=== PATIENT | female | born 1980 ===

== ENCOUNTER 2017-08-24 21:56 | Emergency (ER) | payer SELFPAY ==
[2017-08-24 22:34] VITALS: TEMP 97.9
--- NOTE | 2017-08-24 23:48 | ED PDOC ---
Arrival/HPI - General Chief Complaint: Back Pain Time Seen by Provider: 08/24/17 23:31 Historian: Patient - History of Present Illness Narrative History of Present Illness (Text): 08/24/17 23:35 This 37 yo female with pmh hypothyroidism, presents to this ED c/o right lower back pain x 10 days. Patient stated pain has bee persisting. Patient denies trauma, fall, weakness, paresthesias, GI/ incontinence, saddle anesthesia, urinary retention, dizziness or abnormal gait. Time/Duration: Other (see hpi) Quality: Aching Context: Home Past Medical History - Provider Review Nursing Documentation Reviewed: Yes - Endocrine/Metabolic Hx Hypothyroidism: Yes - Psychiatric Hx Substance Use: No Family/Social History - Physician Review Nursing Documentation Reviewed: Yes Family/Social History: Other (noncontributory) Smoking Status: n Hx Alcohol Use: No Hx Substance Use: No Allergies/Home Meds Allergies/Adverse Reactions: Allergies No Known Allergies Allergy (Verified 08/24/17 22:34) Home Medications: Home Meds Medication Instructions Recorded Confirmed Levothyroxine [Synthroid] 50 mcg PO DAILY 08/24/17 08/24/17 Review of Systems - Review of Systems Constitutional: Normal. absent: Fatigue, Weight Change, Fevers Eyes: Normal. absent: Photophobia ENT: Normal Respiratory: Normal. absent: SOB, Cough Cardiovascular: Normal. absent: Chest Pain Gastrointestinal: Normal. absent: Abdominal Pain, Nausea, Vomiting Genitourinary Female: Normal. absent: Dysuria, Frequency, Hematuria, Vaginal Bleeding, Vaginal Discharge Musculoskeletal: Back Pain. absent: Arthralgias, Neck Pain, Joint Swelling Skin: Normal. absent: Rash Neurological: Normal. absent: Headache, Dizziness, Focal Weakness, Gait Changes , Speech Changes, Facial Droop, Disequilibrium Endocrine: Normal Hemo/Lymphatic: Normal Psychiatric: Normal Physical Exam Vital Signs Temp 08/24/17 22:30 97.9 F Temperature: Afebrile Blood Pressure: Normal Pulse: Regular Respiratory Rate: Normal Appearance: Positive for: Well-Appearing, Non-Toxic, Comfortable Pain Distress: None Mental Status: Positive for: Alert and Oriented X 3 - Systems Exam Head: Present: Atraumatic, Normocephalic Pupils: Present: PERRL Extroacular Muscles: Present: EOMI Conjunctiva: Present: Normal Mouth: Present: Moist Mucous Membranes Neck: Present: Normal Range of Motion Abdomen: Present: Normal Bowel Sounds. No: Tenderness, Distention, Peritoneal Signs Back: Present: Normal Inspection, Paraspinal Tenderness (Mild right paravertebral tenderness. No vertebral point tenderness. No vertebral step off ). No: CVA Tenderness, Midline Tenderness Upper Extremity: Present: Normal Inspection, Normal ROM, Neurovascularly Intact. No: Cyanosis, Edema Lower Extremity: Present: Normal Inspection, NORMAL PULSES, Normal ROM. No: Edema Neurological: Present: GCS=15, CN II-XII Intact, Speech Normal, Motor Func Grossly Intact, Normal Sensory Function, Normal Cerebellar Funct, Gait Normal, Memory Normal Skin: Present: Warm, Dry, Normal Color. No: Rashes Psychiatric: Present: Alert, Oriented x 3, Normal Insight, Normal Concentration Medical Decision Making ED Course and Treatment: 08/24/17 23:53 Re-evaluation. Patient feels better. Discussed results and plan with patient who expresses understanding. All questions answered and there is agreement with the plan to discharge home with instructions. Patient stable for discharge. Return if symptoms persist or worsen. Re-evaluation Time: 23:53 Reassessment Condition: Re-examined, Improved Disposition/Present on Arrival - Present on Arrival Any Indicators Present on Arrival: No History of DVT/PE: No History of Uncontrolled Diabetes: No Urinary Catheter: No History of Decub. Ulcer: No History Surgical Site Infection Following: None - Disposition Have Diagnosis and Disposition been Completed?: Yes Diagnosis: Lower back pain Disposition: HOME/ ROUTINE Disposition Time: 23:53 Patient Plan: Discharge Condition: GOOD Additional Instructions: Call private doctor for follow up visit in 1-2 days. Take medication as instructed with food. Return to emergency if symptoms worsen. Prescriptions: diaZEpam [Valium] 5 mg PO DAILY #6 tab Famotidine [Pepcid] 40 mg PO DAILY #10 tablet Naproxen 500 mg PO BID PRN #14 tablet PRN Reason: Pain, Severe (8-10) oxyCODONE/Acetaminophen [Percocet 5/325 mg Tab] 1 ea PO Q6H PRN #5 tab PRN Reason: Pain, Severe (8-10) Referrals: [facility] [Outside] - Follow up with primary [facility] [Outside] - Follow up with primary
[2017-08-25 00:04] VITALS: BP 146/78; PULSE 88; RESP 16; O2SAT 100
== END 2017-08-25 00:03 | disposition home or self-care (01) ==
LOC: ED 21:56 → MERGE 21:56 → ED 08-25 00:03
DX: M54.5 Low back pain (principal)
CPT/HCPCS: 81025; 96372; 99283; J1885

== ENCOUNTER 2017-11-10 19:12 | Emergency (ER) | payer SELFPAY ==
[2017-11-10 19:20] VITALS: TEMP 98.6
--- NOTE | 2017-11-10 19:43 | ED PDOC ---
Arrival/HPI - General Chief Complaint: Female Genitourinary Time Seen by Provider: 11/10/17 19:19 Historian: Patient - History of Present Illness Narrative History of Present Illness (Text): 11/10/17 19:40 A 37 year old female, who is approximately 5 weeks , presents to the emergency department complaining of urinary frequency and brining on urination since today. Patient denies any fever, chills, nausea, vomiting, abdominal pain , back pain, chest pain, shortness of breath or any other complaints. Time/Duration: Other (today) Symptom Course: Unchanged Quality: Burning Context: Home Past Medical History - Provider Review Nursing Documentation Reviewed: Yes - Cardiac Hx Cardiac Disorders: No - Pulmonary Hx Respiratory Disorders: No - Neurological Hx Neurological Disorder: No - HEENT Hx HEENT Disorder: No - Renal Hx Renal Disorder: No - Endocrine/Metabolic Hx Endocrine Disorders: Yes Hx Hypothyroidism: Yes - Hematological/Oncological Hx Blood Disorders: No - Integumentary Hx Dermatological Disorder: No - Musculoskeletal/Rheumatological Hx Musculoskeletal Disorders: Yes Hx Fractures: Yes - Gastrointestinal Hx Gastrointestinal Disorders: No - Genitourinary/Gynecological Hx Genitourinary Disorders: No - Psychiatric Hx Psychophysiologic Disorder: No Hx Substance Use: No - Surgical History Hx Tonsillectomy: Yes Other/Comment: R ANKLE Family/Social History - Physician Review Nursing Documentation Reviewed: Yes Family/Social History: No Known Family HX Smoking Status: Former Smoker Hx Alcohol Use: No Hx Substance Use: No Allergies/Home Meds Allergies/Adverse Reactions: Allergies No Known Allergies Allergy (Verified 08/24/17 22:34) Home Medications: Home Meds Medication Instructions Recorded Confirmed Levothyroxine [Synthroid] 50 mcg PO DAILY 08/24/17 11/10/17 Review of Systems - Physician Review All systems were reviewed & negative as marked: Yes - Review of Systems Constitutional: absent: Fevers, Night Sweats Respiratory: absent: SOB Cardiovascular: absent: Chest Pain Gastrointestinal: absent: Abdominal Pain, Nausea, Vomiting Genitourinary Female: Dysuria, Frequency Musculoskeletal: absent: Back Pain Physical Exam Vital Signs Reviewed: Yes Vital Signs Temp Pulse Resp BP Pulse Ox 11/10/17 19:15 98.6 F 82 16 105/64 98 Temperature: Afebrile Blood Pressure: Normal Pulse: Regular Respiratory Rate: Normal Appearance: Positive for: Well-Appearing, Non-Toxic, Comfortable Pain Distress: None Mental Status: Positive for: Alert and Oriented X 3 - Systems Exam Head: Present: Atraumatic, Normocephalic Pupils: Present: PERRL Extroacular Muscles: Present: EOMI Conjunctiva: Present: Normal Mouth: Present: Moist Mucous Membranes Neck: Present: Normal Range of Motion Respiratory/Chest: Present: Clear to Auscultation, Good Air Exchange. No: Respiratory Distress, Accessory Muscle Use Cardiovascular: Present: Regular Rate and Rhythm, Normal S1, S2. No: Murmurs Abdomen: Present: Normal Bowel Sounds. No: Tenderness, Distention, Peritoneal Signs Back: Present: Normal Inspection. No: CVA Tenderness Upper Extremity: Present: Normal Inspection, NORMAL PULSES. No: Cyanosis, Edema Lower Extremity: Present: Normal Inspection, NORMAL PULSES. No: Edema Neurological: Present: GCS=15, CN II-XII Intact, Speech Normal Skin: Present: Warm, Dry, Normal Color. No: Rashes Psychiatric: Present: Alert, Oriented x 3, Normal Insight, Normal Concentration Medical Decision Making ED Course and Treatment: 11/10/17 19:40 Impression: A 37 year old female with urinary frequency and dysuria. Patient reports 5 weeks . Plan: -- Urinalysis -- Reassess and disposition Progress Notes: - Lab Interpretations Lab Results: Lab Results 11/10/17 19:35: Urine Color Yellow, Urine Appearance Clear, Urine pH 6.0, Ur Specific [place] >= 1.030, Urine Protein Trace H, Urine Glucose (UA) Negative, Urine Ketones Negative, Urine Blood Negative, Urine Nitrate Positive H, Urine Bilirubin Negative, Urine Urobilinogen 0.2, Ur Leukocyte Esterase Negative, Urine RBC 0 - 2, Urine WBC 1 - 3, Ur Epithelial Cells 6 - 8, Amorphous Sediment Few, Urine Bacteria Many, Urine Other Uyeast, Urine HCG, Qual Positive - Scribe Statement The provider has reviewed the documentation as recorded by the Mily Aguila Provider Scribe Attestation: All medical record entries made by the Scribe were at my direction and personally dictated by me. I have reviewed the chart and agree that the record accurately reflects my personal performance of the history, physical exam, medical decision making, and the department course for this patient. I have also personally directed, reviewed, and agree with the discharge instructions and disposition. Disposition/Present on Arrival - Present on Arrival Any Indicators Present on Arrival: No History of DVT/PE: No History of Uncontrolled Diabetes: No Urinary Catheter: No History of Decub. Ulcer: No History Surgical Site Infection Following: None - Disposition Have Diagnosis and Disposition been Completed?: Yes Diagnosis: UTI (urinary tract infection) Disposition: HOME/ ROUTINE Disposition Time: 20:24 Patient Plan: Discharge Condition: GOOD Discharge Instructions (ExitCare): Urinary Tract Infection, Adult (DC) Additional Instructions: Drink plenty of liquids/take meds as prescribed/follow up with your doctor this week Prescriptions: Nitrofurantoin Macrocrystals [Macrobid] 100 mg PO BID #10 cap Forms: [employer] (Niuean)
[2017-11-10 19:51] LABS: URINE BILIRUBIN NEGATIVE (NEGATIVE); URINE BLOOD NEGATIVE (NEGATIVE); URINE GLUCOSE (UA) NEGATIVE (NEGATIVE); URINE LEUKOCYTE ESTERASE NEGATIVE Leu/uL (NEGATIVE); URINE PROTEIN TRACE mg/dL (<30 mg/dL); URINE UROBILINOGEN 0.2 E.U./dL (<1 E.U./dL)
[2017-11-10 20:08] LABS: URINE APPEARANCE CLEAR (CLEAR); URINE COLOR YELLOW (YELLOW)
[2017-11-10 20:09] LABS: HCG,QUALITATIVE URINE POSITIVE (NEGATIVE)
[2017-11-10 20:13] LABS: URINE AMORPHOUS SEDIMENT FEW; URINE BACTERIA MANY (NEG); URINE RBC 0 - 2 /hpf (0-2)
[2017-11-10 20:41] VITALS: BP 110/72; PULSE 85; RESP 18; O2SAT 100
== END 2017-11-10 20:30 | disposition home or self-care (01) ==
LOC: ED 19:12
DX: O23.41 Unspecified infection of urinary tract in pregnancy, first trimester (principal); Z3A.01 Less than 8 weeks gestation of pregnancy; Z87.891 Personal history of nicotine dependence; E03.9 Hypothyroidism, unspecified

== ENCOUNTER 2018-01-01 18:25 | Emergency (ER) | payer MEDICAID ==
[2018-01-01 18:40] VITALS: O2SAT 99
--- NOTE | 2018-01-01 18:51 | ED PDOC ---
Arrival/HPI - General Chief Complaint: Abdominal Pain Time Seen by Provider: 01/01/18 18:30 Historian: Patient - History of Present Illness Narrative History of Present Illness (Text): 01/01/18 18:41 37 year old female, pmh including hypothyroidism, , LMP 09/2017, nkda, complaining of rt. ear pain started last night and suprapubic pressure x 2 days with no fall or trauma. Pt. stated that she has been wearing earphone excessively for the past 2 days, associated with the rt. ear pain, no change in hearing, no dizziness, no oozing or discharge, no night sweat. Pt. is also complaining about dyspepsia for the past 2 days, last bowel movement was yesterday, no nausea or vomiting, no pelvic or lower abdominal pain, no fever or chills, no chest pain or shortness of breath, no flank pain, no other medical or psychological complaints. Past Medical History - Provider Review Nursing Documentation Reviewed: Yes - Cardiac Hx Cardiac Disorders: No - Pulmonary Hx Respiratory Disorders: No - Neurological Hx Neurological Disorder: No - HEENT Hx HEENT Disorder: No - Renal Hx Renal Disorder: No - Endocrine/Metabolic Hx Endocrine Disorders: Yes Hx Hypothyroidism: Yes - Hematological/Oncological Hx Blood Disorders: No - Integumentary Hx Dermatological Disorder: No - Musculoskeletal/Rheumatological Hx Musculoskeletal Disorders: Yes Hx Fractures: Yes (R ANKLE) - Gastrointestinal Hx Gastrointestinal Disorders: No - Genitourinary/Gynecological Hx Genitourinary Disorders: No - Psychiatric Hx Psychophysiologic Disorder: No Hx Substance Use: No - Surgical History Hx Tonsillectomy: Yes Other/Comment: R ANKLE Family/Social History - Physician Review Nursing Documentation Reviewed: Yes Family/Social History: Unknown Family HX Smoking Status: Former Smoker Hx Alcohol Use: No Hx Substance Use: No Allergies/Home Meds Allergies/Adverse Reactions: Allergies No Known Allergies Allergy (Verified 01/01/18 18:35) Home Medications: Home Meds Medication Instructions Recorded Confirmed Levothyroxine [Synthroid] 50 mcg PO DAILY 08/24/17 01/01/18 Multivit/Folic Acid/I 1 tab PO DAILY 01/01/18 01/01/18 [] Review of Systems - Review of Systems Constitutional: absent: Fatigue, Fevers Eyes: absent: Vision Changes ENT: Other (+rt. ear pain). absent: Hearing Changes Respiratory: absent: SOB, Cough, Sputum Cardiovascular: absent: Chest Pain Gastrointestinal: Abdominal Pain. absent: Nausea, Vomiting Musculoskeletal: absent: Arthralgias, Back Pain Skin: absent: Rash, Pruritis Neurological: absent: Headache, Dizziness Psychiatric: absent: Anxiety, Depression Physical Exam Vital Signs Reviewed: Yes Vital Signs Temp Pulse Resp BP Pulse Ox 01/01/18 20:18 98.2 F 73 20 106/65 99 01/01/18 18:36 99.1 F 81 16 102/70 99 Temperature: Afebrile Blood Pressure: Normal Pulse: Regular Respiratory Rate: Normal Appearance: Positive for: Well-Appearing, Non-Toxic, Comfortable Pain Distress: Mild Mental Status: Positive for: Alert and Oriented X 3 - Systems Exam Head: Present: Atraumatic, Normocephalic Pupils: Present: PERRL Extroacular Muscles: Present: EOMI Conjunctiva: Present: Normal Ears: Present: NORMAL TM, Normal Canal, Other (no mastoid tenderness). No: Erythema, TM Bulging, Fluid, TM Perf Mouth: Present: Moist Mucous Membranes Pharnyx: No: ERYTHEMA, EXUDATE, TONSILS ENLARGED Nose (External): Present: Atraumatic. No: Abrasion, Contusion, Laceration Nose (Internal): Present: Normal Inspection, No Active Bleeding. No: Rhinorrhea , Septal Hematoma, Epistaxis Neck: Present: Normal Range of Motion, Trachea Midline. No: Meningeal Signs, MIDLINE TENDERNESS, Lymphadenopathy Respiratory/Chest: Present: Clear to Auscultation, Good Air Exchange. No: Respiratory Distress, Accessory Muscle Use, Wheezes, Retracting, Rhonchi Cardiovascular: Present: Regular Rate and Rhythm, Normal S1, S2. No: Murmurs Abdomen: Present: Tenderness (mild epigastric tenderness, negative johnson sign) . 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 No: Vaginal Discharge, Vaginal Bleeding, Vaginal Lesions, Adenexal Tenderness, Adenexal Mass, Cervical Motion Tendernes, Odor Back: Present: Normal Inspection Upper Extremity: Present: Normal Inspection. No: Cyanosis, Edema Lower Extremity: Present: Normal Inspection. No: Edema Neurological: Present: GCS=15, Speech Normal, Motor Func Grossly Intact, Gait Normal, Memory Normal Skin: Present: Warm, Dry, Normal Color. No: Rashes Psychiatric: Present: Alert, Oriented x 3, Normal Insight, Normal Concentration Medical Decision Making ED Course and Treatment: 01/01/18 18:57 Differential: Gastritis vs. pancreatitis vs. UTI vs. threatened -labs/ua -OB sonogram -pepcid/tylenol -observe and reassess 01/01/18 20:29 -Labs are non-significant -Urinalysis show Trace leukocyte and urine wbc elevated noted, clinically concerning to be bacterial UTI, urine culture sent and will prescribe macrobid. -Urinalysis also noted to have yeast but no urinary symptoms and no vaginal itching with no visible white fungal discharge, will defer to the obgyn to manage and urine culture sent. -Sonogram show cardiac activity detected at 150 beats per minute, 13 weeks and 1 day, single live intrauterine -Pt. is asymptomatic, abdominal and ear pain resolved. -all labs and radiology result discussed with the patient including the differentials considering, verbally expressed understanding that she will see her own pmd. -Discharge home with macrobid, pepcid, tylenol, follow up with your own pmd and obgyn within 2 days, return to the ER for any new or worsening signs or symptoms. - Lab Interpretations Lab Results: 01/01/18 19:21 01/01/18 19:21 Lab Results 01/01/18 19:21: WBC 9.3, RBC 3.87, Hgb 10.6 L, Hct 31.6 L, MCV 81.7, MCH 27.4, MCHC 33.5, RDW 14.1, Plt Count 301, MPV 9.5, Gran % 71.5 H, Lymph % (Auto) 22.3 , [place] % (Auto) 4.8, Eos % (Auto) 1.2 L, Baso % (Auto) 0.2, Gran # 6.66 H, Lymph # (Auto) 2.1, [place] # (Auto) 0.5, Eos # (Auto) 0.1, Baso # (Auto) 0.02 01/01/18 19:21: Sodium 137, Potassium 3.6, Chloride 108 H, Carbon Dioxide 19 L, Anion Gap 14, BUN 9, Creatinine 0.4 L, Est GFR ( Amer) > 60, Est GFR (Non -Af Amer) > 60, Random Glucose 76, Calcium 8.6, Total Bilirubin 0.2, AST 23, ALT 27, Alkaline Phosphatase 56, Total Protein 6.6, Albumin 3.5, Globulin 3.1, Albumin/Globulin Ratio 1.1, Lipase 72 01/01/18 19:21: Urine Color Yellow, Urine Appearance Clear, Urine pH 6.5, Ur Specific [place] 1.020, Urine Protein Negative, Urine Glucose (UA) Negative, Urine Ketones Negative, Urine Blood Negative, Urine Nitrate Negative, Urine Bilirubin Negative, Urine Urobilinogen 0.2, Ur Leukocyte Esterase Trace H, Urine RBC 1 - 3, Urine WBC 5 - 10, Ur Epithelial Cells 6 - 8, Urine Bacteria Many, Urine Other Uyeast - RAD Interpretation Radiology Orders: 01/01/18 18:52 OB , LIMITED [US] Stat FINDINGS: Fetus: Single live intrauterine . motion detected. Size measurements correspond to a of 13 weeks 1 day. Position: Cephalic presentation. Heart rate: cardiac activity detected at 150 beats per minute. Placenta: Placenta is anterior and unremarkable. Cervix: Cervix measures 5.5 cm and is closed. Adnexa: Right ovary not seen. Left ovary not seen. IMPRESSION: Single live intrauterine . Thank you for allowing us to participate in the care of your patient. Dictated and Authenticated by: Jose M Marsh MD 01/01/2018 8:22 PM Eastern Time ([place] & [place]) Marriage And Family Therapist: Radiologist - Medication Orders Current Medication Orders: Discontinued Medications Acetaminophen (Tylenol 325mg Tab) 650 mg PO STAT STA Stop: 01/01/18 18:53 Last Admin: 01/01/18 19:08 Dose: 650 mg MAR Pain/Vitals Document 01/01/18 19:08 OCS (Rec: 01/01/18 19:09 OCS [facility]) Pain Reassessment Is This A Pain ReAssessment? No Sleep Is patient sleeping during reassessment? No Presence of Pain Presence of Pain No Pain Scale Used Pain Scale Used Numeric Location Left, Right or Bilateral Bilateral Upper or Lower Upper Pain Location Body Site Abdomen Description Constant Intensity 8 Scale Used Numeric Pain Behavior Irritability Aggravating Factors ADL's Famotidine (Pepcid) 20 mg PO STAT STA Stop: 01/01/18 18:53 Last Admin: 01/01/18 19:08 Dose: 20 mg - PA / CHILD WELFARE MANAGER / Resident Statement MD/DO has reviewed & agrees with the documentation as recorded. Disposition/Present on Arrival - Present on Arrival Any Indicators Present on Arrival: No History of DVT/PE: No History of Uncontrolled Diabetes: No Urinary Catheter: No History of Decub. Ulcer: No History Surgical Site Infection Following: None - Disposition Have Diagnosis and Disposition been Completed?: Yes Diagnosis: UTI (urinary tract infection), Gastritis Disposition: HOME/ ROUTINE Disposition Time: 20:31 Patient Plan: Discharge Patient Problems: Current Active Problems Problem Status Onset UTI (urinary tract infection) Acute Gastritis Acute Condition: IMPROVED Discharge Instructions (ExitCare): Urinary Tract Infections in Adults, Gastritis Additional Instructions: -Discharge home with education on avoid drinking in public, follow up with your own pmd within 2 days, return to the ER for any new or worsening signs or symptoms. Prescriptions: Acetaminophen [Tylenol 325mg tab] 2 tab PO QID PRN #30 tab PRN Reason: Other Famotidine [Pepcid] 20 mg PO BID #14 tab Nitrofurantoin Macrocrystals [Macrobid] 100 mg PO BID #14 cap Referrals: [facility] at [facility] [Outside] - Follow up with primary Anahi Keyes MD [Medical Doctor] - Follow up with primary Selena Hurley MD [Staff Provider] - Follow up with primary Theron Herrera MD [Staff Provider] - Follow up with primary Forms: WORK NOTE
[2018-01-01 19:33] LABS: PH,URINE 6.5 (4.7-8.0); URINE APPEARANCE CLEAR (CLEAR); URINE BILIRUBIN NEGATIVE (NEGATIVE); URINE BLOOD NEGATIVE (NEGATIVE); URINE COLOR YELLOW (YELLOW); URINE GLUCOSE (UA) NEGATIVE (NEGATIVE); URINE LEUKOCYTE ESTERASE TRACE Leu/uL (NEGATIVE); URINE PROTEIN NEGATIVE mg/dL (<30 mg/dL); URINE UROBILINOGEN 0.2 E.U./dL (<1 E.U./dL)
[2018-01-01 19:34] LABS: BASO # 0.02 K/mm3 (0.0-2.0); BASO % 0.2 % (0.0-3.0); EOS # 0.1 (0.0-0.7); EOS % 1.2 % (1.5-5.0); GRAN # 6.66 (1.4-6.5); GRAN % 71.5 % (50.0-68.0); HEMOGLOBIN 10.6 g/dL (12.0-16.0); LYMPH # 2.1 (1.2-3.4); LYMPH % 22.3 % (22.0-35.0); MEAN CELL VOLUME 81.7 fl (80.0-105.0); MEAN CORPUSCULAR HEMOGLOBIN 27.4 pg (25.0-35.0); MEAN CORPUSCULAR HGB CONC 33.5 g/dl (31.0-37.0); MEAN PLATELET VOLUME 9.5 fl (7.0-11.0); MONO # 0.5 (0.1-0.6); MONO % 4.8 % (1.0-6.0); RBC 3.87 10^6/uL (3.5-6.1); RED CELL DISTRIBUTION WIDTH 14.1 % (11.5-14.5); WHITE BLOOD COUNT 9.3 10^3/ul (4.5-11.0)
[2018-01-01 19:37] LABS: ALB/GLOB RATIO 1.1 (1.1-1.8); ALBUMIN 3.5 g/dL (3.0-4.8); ALT/SGPT 27 U/L (7-56); AST/SGOT 23 U/L (14-36); BLOOD UREA NITROGEN 9 mg/dL (7-21); CALCIUM 8.6 mg/dL (8.4-10.5); GFR AFRICAN-AMERICAN > 60; GFR NON-AFRICAN AMERICAN > 60; LIPASE 72 U/L (23-300)
[2018-01-01 19:40] LABS: URINE BACTERIA MANY (NEG)
[2018-01-01 20:22] VITALS: BP 106/65; PULSE 73; RESP 20; TEMP 98.2
--- NOTE | 2018-01-02 08:30 | US ---
PROCEDURE: Limited ultrasound HISTORY: 13 weeks , medical clearance COMPARISON: None available. TECHNIQUE: Standard protocol for this study/examination. FINDINGS: Cephalic presentation. Anterior Placenta. No evidence of abruption or previa Gestational age derived from LMP 12 weeks 6 days. VARUN July 10, 2018. Gestational age derived from the following biometric parameters 13 weeks 2 days. VARUN July 07, 2018 Biparietal diameter 2.36 cm Head circumference 8.79 cm Abdominal circumference 6.18 cm Femur length 0.82 cm Estimated weight 64.5 g Calculated cardiac rate 150 beats per min. Closed cervix measuring 7.01 cm IMPRESSION: Thirteen weeks 2 days live intrauterine gestation. Gestational concordance documented. Concordant results (preliminary interpretation) provided by [facility]. Procedure Completed: 20:01 Preliminary ([facility]) Report: Dictated and Authenticated: 20:22 Final Interpretation: 08:26 January 02, 2018.
== END 2018-01-01 21:20 | disposition home or self-care (01) ==
LOC: ED 18:25
DX: O26.891 Other specified pregnancy related conditions, first trimester (principal); K29.70 Gastritis, unspecified, without bleeding; O23.41 Unspecified infection of urinary tract in pregnancy, first trimester; Z3A.13 13 weeks gestation of pregnancy